=== PATIENT | female | born 1955 | race Caucasian/White ===

== ENCOUNTER → 2016-03-06 | Day surgery (SDC) | payer BC ==
[2016-02-25 07:51] VITALS: Ht 162.6 cm; Wt 75.0 kg
[~2016-03-06] VITALS: Ht 162.6 cm; Wt 75.0 kg
[~2016-03-06] MED LIST: AMLO-114 PO; ASPCH81X PO; ATOR10TA82 PO; FEXO1TAB49 PO; LEVO100T7 PO; LIDOCAINE HCL 2% 2 ML VIAL (20MG/ML) ONE; MIDAZOLAM HCL 1 MG/ML 2ML VIAL ONE; MULT-190 PO; PROPOFOL IV EMULSION 10 MG/ML 20 ML VIAL IV ONE; SODIUM CHLORIDE 0.9% 500ML 500 ML IV ONE
--- NOTE | 2016-03-06 12:54 | Endo History and Physical ---
History & Physical Date of Service: Mar 06, 2016. Chief Complaint: Nausea, Atypical chest pain Referring Physician: Dr Nguyen History of Present Illness 60 yo CF who presents for EGD secondary to nausea and atypical chest pain. Past Medical History Cancer, High Cholesterol, Hypertension, Thyroid Disease, Other Past Surgical History Hx Cardiac Surgery: No Hx Internal Defibrillator: No Hx Pacemaker: No Hx of Implantable Prosthesis: No Hx Post-Op Nausea and Vomiting: No Hx Cancer Surgery: No Hx Thoracic Surgery: No Hx Orthopedic: Yes (RT MENISCUS REPAIR) Hx Urinary Tract Surgery: No Family History None Social History Smoking Status: Never Smoker Hx Substance Use: No Hx Alcohol Use: Yes (OCCASIONAL) Allergies Coded Allergies: Doxycycline (Verified Allergy, Unknown, UNKNOWN, 03/06/16) Penicillins (Verified Allergy, Unknown, HIVES, SWELLING, 02/25/16) Current Medications Reported Home Medications Medications Dose Route/Sig Max Daily Dose Days Date Category Ocuvite Preservision (Multivitamins/Minerals) 1 Tab Tab 2 Tab PO QAM 02/25/16 Reported Levothyroxine Sodium 100 Mcg Tab 1 Tab PO QAM 90 02/25/16 Reported Lipitor (Atorvastatin Calcium) 10 Mg Tab 10 Mg PO QAM 02/25/16 Reported Carmina Allergy (Fexofenadine Hcl) 180 Mg Tab 1 Tab PO DAILY PRN 14 02/25/16 Reported Norvasc (Amlodipine Besylate) 10 Mg Tab 10 Mg PO QAM 07/27/13 Reported Aspirin Chewable (Aspirin) 81 Mg Chew 81 Mg PO QAM 02/22/12 Reported Vital Signs Weight (Kilograms): 75 Height (Feet): 5 Height (Inches): 4 Date Time Temp Pulse Resp B/P Pulse Ox O2 Delivery O2 Flow Rate FiO2 03/06/16 12:42 36.6 62 20 123/77 97 Room Air Physical Exam General Appearance: WD/WN, no apparent distress Respiratory/Chest: Auscultation: breath sounds normal Cardiovascular: Heart Auscultation: RRR Abdomen: Bowel Sounds: normal Inspection & Palpation: soft, non-distended, no tenderness, guarding & rebound Assessment and Plan Assessment: 60 yo CF who presents for EGD secondary to nausea and atypical chest pain. Plan: Proceed with EGD.
--- NOTE | 2016-03-06 13:08 | Discharge Instructions ---
Endoscopy Patient Instructions Date / Procedure(s) Performed Mar 06, 2016. EGD Allergy Information Coded Allergies: Doxycycline (Verified Allergy, Unknown, UNKNOWN, 03/06/16) Penicillins (Verified Allergy, Unknown, HIVES, SWELLING, 02/25/16) Discharge Date / Findings Mar 06, 2016. Erosive gastritis with biopsies Hiatal hernia Medication Instructions 1) OK to resume all medications today as prescribed 2) Start Protonix 40mg by mouth each morning 1/2 hour prior to breakfast. Reported Home Medications Medications Dose Route/Sig Max Daily Dose Days Date Category Ocuvite Preservision (Multivitamins/Minerals) 1 Tab Tab 2 Tab PO QAM 02/25/16 Reported Levothyroxine Sodium 100 Mcg Tab 1 Tab PO QAM 90 02/25/16 Reported Lipitor (Atorvastatin Calcium) 10 Mg Tab 10 Mg PO QAM 02/25/16 Reported Carmina Allergy (Fexofenadine Hcl) 180 Mg Tab 1 Tab PO DAILY PRN 14 02/25/16 Reported Norvasc (Amlodipine Besylate) 10 Mg Tab 10 Mg PO QAM 07/27/13 Reported Aspirin Chewable (Aspirin) 81 Mg Chew 81 Mg PO QAM 02/22/12 Reported Provider Instructions Activity Restrictions - No exercising or heavy lifting for 24 hours. - Do not drink alcohol the day of the procedure. - Do not drive a car or operate machinery until the day after the procedure. - Do not make any important decisions or sign important papers in 24 hours after the procedure. Following Day: - Return to full activity which may include returning to work/school. Diet Start your diet with liquids and light foods (jello, soup, juice, toast). Then eat your usual diet if not nauseated. Treatment For Common After Affects For mild abdominal pain, bloating, or excessive gas: - Rest - Eat lightly - Lie on right side Follow-Up Information Follow-up with Dr Nguyen as scheduled Anesthesia Information What You Should Know You have had a procedure that required some medicine to reduce anxiety and discomfort. This treatment is called moderate sedation. After receiving the treatment, you may be sleepy, but you will be able to breathe on your own. The effects of the treatment may last for several hours. Follow these instructions along with Activity/Diet recommendations noted above: * Do NOT do anything where dizziness or clumsiness would be dangerous. * Rest quietly at home today, then you can be up and about tomorrow. * Have a responsible person stay with you the rest of today. * You may have had an I.V. today. If so, you may take the dressing off later today. Recommendations Call your doctor if: * Trouble breathing * Continuous vomiting for more than 24 hours * Temperature above 101 degrees * Severe abdominal pain or bloating * Pain not relieved by pain medicine ordered * There is increased drainage or redness from any incision * A large amount of rectal bleeding greater than 2-3 tablespoons. (If you had a polyp/s removed or have hemorrhoids, a small amount of blood - from the rectum is to be expected.) * You have any unanswered questions or concerns. IN THE EVENT OF A SERIOUS EMERGENCY, GO TO THE NEAREST EMERGENCY ROOM Your discharge instructions were prepared by provider Santos Metz. Patient Instructions Signature Page Samantha Mendoza Patient (or Guardian) Signature/Date: I have read and understand the instructions given to me by my caregivers. Caregiver/RN/Doctor Signature/Date: The above-named patient and/or guardian has received patient instructions on this date. + Original Patient Signature Page (only) stays with chart. Please make copy for patient.
--- NOTE | 2016-03-06 13:16 | GI REPORT ---
Procedure Date: 03/06/2016 12:32 PM Procedure: Upper GI endoscopy Indications: Unexplained chest pain, Nausea Medicines: Monitored Anesthesia Care Complications: No immediate complications. Estimated Blood Loss: Estimated blood loss: none. Procedure: Pre-Anesthesia Assessment: - Prior to the procedure, a History and Physical was performed, and patient medications and allergies were reviewed. The patient's tolerance of previous anesthesia was also reviewed. The risks and benefits of the procedure and the sedation options and risks were discussed with the patient. All questions were answered, and informed consent was obtained. Prior Anticoagulants: The patient has taken aspirin, last dose was 3 days prior to procedure. ASA Grade Assessment: II - A patient with mild systemic disease. After reviewing the risks and benefits, the patient was deemed in satisfactory condition to undergo the procedure. After obtaining informed consent, the endoscope was passed under direct vision. Throughout the procedure, the patient's blood pressure, pulse, and oxygen saturations were monitored continuously. The scope was introduced through the mouth, and advanced to the second part of duodenum. The upper GI endoscopy was accomplished without difficulty. The patient tolerated the procedure well. Findings: The examined esophagus was normal. A small hiatus hernia was present. Localized moderate inflammation characterized by erosions was found in the gastric antrum. Biopsies were taken with a cold forceps for histology. The examined duodenum was normal. Impression: - Normal esophagus. - Small hiatus hernia. - Gastritis. Biopsied. - Normal examined duodenum. Recommendation: - Resume previous diet. - Continue present medications. - Await pathology results. - Use Protonix (pantoprazole) 40 mg PO daily indefinitely. - Return to GI office at appointment to be scheduled. Santos Metz DO 03/06/2016 1:15:22 PM This report has been signed electronically. Note Initiated On: 03/06/2016 12:32 PM
[2016-03-06 13:39] VITALS: BP 143/81; PULSE 62; O2SAT 97
--- NOTE | 2016-03-06 14:35 | Anesthesiology Progress Note ---
Anesthesia Post Op Note Date & Time Mar 06, 2016 at 14:34 Vital Signs Vital Signs Past 12 Hours Date Time Temp Pulse Resp B/P Pulse Ox O2 Delivery O2 Flow Rate FiO2 03/06/16 13:39 62 16 143/81 97 Room Air 03/06/16 13:24 64 16 136/87 97 Room Air 03/06/16 13:09 70 16 109/67 96 Room Air 03/06/16 12:42 36.6 62 20 123/77 97 Room Air Notes Mental Status: alert / awake / arousable Nausea / Vomiting: adequately controlled Pain: adequately controlled Airway Patency, RR, SpO2: stable & adequate BP & HR: stable & adequate Hydration State: stable & adequate Anesthetic Complications: no major complications apparent
== END | disposition home or self-care (01) ==
LOC: C.GI 12:09
PROVIDERS: ATTEND Internal Medicine
DX: R07.89 Other chest pain (principal); K29.70 Gastritis, unspecified, without bleeding; K44.9 Diaphragmatic hernia without obstruction or gangrene; Z88.0 Allergy status to penicillin; I10 Essential (primary) hypertension; M19.90 Unspecified osteoarthritis, unspecified site; Z68.28 Body mass index [BMI] 28.0-28.9, adult; Z98.51 Tubal ligation status

== ENCOUNTER → 2016-03-16 | Outpatient (CLI) | payer BC ==
[~2016-03-16] MED LIST changes: -ATOR10TA82 PO; +ATOR10TA88 PO; -LIDOCAINE HCL 2% 2 ML VIAL (20MG/ML) ONE; -MIDAZOLAM HCL 1 MG/ML 2ML VIAL ONE; -PROPOFOL IV EMULSION 10 MG/ML 20 ML VIAL IV ONE; -SODIUM CHLORIDE 0.9% 500ML 500 ML IV ONE
--- NOTE | 2016-03-16 12:58 | DIAGNOSTIC IMAGING REPORT ---
CHEST 2 VIEWS ROUTINE HISTORY: Wheezing. Cough. COMPARISON: Chest 02/22/2012. FINDINGS: Increased markings with right medial lung base. No pleural effusions. No pneumothorax. The heart is borderline enlarged. This remains unchanged. No evidence for pulmonary edema. The left lung is clear. IMPRESSION: Increased markings within the right medial lung base. This favors atelectasis. A small right lower lobe pneumonia could also have a similar appearance. One to 2 month chest x-ray follow-up is recommended to ensure resolution. Electronically signed by: Félix Acevedo M.D. 03/16/2016 12:56 PM Dictated Date/Time: 03/16/2016 12:53 PM
== END | disposition home or self-care (01) ==
LOC: C.RAD1850 11:47
PROVIDERS: ATTEND Internal Medicine Pulmonary Disease
DX: R06.2 Wheezing (principal)

== ENCOUNTER → 2016-04-12 | Outpatient (CLI) | payer BC ==
--- NOTE | 2016-04-12 08:48 | DIAGNOSTIC IMAGING REPORT ---
TWO VIEW CHEST CLINICAL HISTORY: Follow-up abnormal chest x-ray. FINDINGS: PA and lateral chest radiographs are compared to study dated 03/16/2016. The cardiomediastinal silhouette is unremarkable. There is a prominent epicardial fat pad seen at the left lung base as well as the medial right lung base. There is mild bibasilar atelectasis. The lungs and pleural spaces are otherwise clear. There is no pneumothorax. The skeletal structures are osteopenic. The bony thorax appears intact. IMPRESSION: No active disease in the chest. Electronically signed by: Aureliano Macias M.D. 04/12/2016 8:47 AM Dictated Date/Time: 04/12/2016 8:45 AM
== END | disposition home or self-care (01) ==
LOC: C.RAD1850 08:34
PROVIDERS: ATTEND Internal Medicine Pulmonary Disease
DX: R91.8 Other nonspecific abnormal finding of lung field (principal)

== ENCOUNTER → 2016-05-25 | Outpatient (CLI) | payer BC ==
--- NOTE | 2016-05-25 09:52 | DIAGNOSTIC IMAGING REPORT ---
Biliary ultrasound CLINICAL HISTORY: Hepatic cyst COMPARISON STUDY: 02/24/2016 FINDINGS: The pancreas appears normal as visualized. There is a 2 mm echogenic focus in the gallbladder. This did not rule or shadow and likely represents a tiny polyp. No gallstones were visualized. There is a 17 mm hepatic cyst unchanged from the prior study. There is no ductal dilatation. The common bile duct measures 5 mm. IMPRESSION: Stable 17 mm left lobe hepatic cyst, unchanged from the preceding study. Electronically signed by: Da Coffey M.D. 05/25/2016 9:50 AM Dictated Date/Time: 05/25/2016 9:32 AM
== END | disposition home or self-care (01) ==
LOC: C.ULTR 09:03
PROVIDERS: ATTEND Registered Nurse
DX: K76.89 Other specified diseases of liver (principal)

== ENCOUNTER → 2016-10-26 | Outpatient (CLI) | payer BC ==
--- NOTE | 2016-10-26 10:28 | DIAGNOSTIC IMAGING REPORT ---
L-SPINE MIN 4 VIEWS ROUTINE HISTORY: 61 years-old Female LOW BACK PAIN, STRAIN OF Muscle, fascia AND TENDON COMPARISON: Chest radiograph 04/12/2016 TECHNIQUE: 5 views of the lumbar spine FINDINGS: 5 nonrib-bearing lumbar type vertebral segments are present. No acute fracture or subluxation identified. Moderate intervertebral disc space narrowing noted at L5-S1. Mild multilevel facet arthrosis is seen. Mild endplate spurring is seen at several levels. Soft tissues are unremarkable. Probable phlebolith are seen within the pelvis. IMPRESSION: 1. No acute lumbar spine fracture or subluxation. 2. Moderate intervertebral disc space narrowing at L5-S1. The above report was generated using voice recognition software. It may contain grammatical, syntax or spelling errors. Electronically signed by: Graeme Hudson M.D. 10/26/2016 10:27 AM Dictated Date/Time: 10/26/2016 10:25 AM
== END | disposition home or self-care (01) ==
LOC: C.RADBC 09:52
PROVIDERS: ATTEND Nurse Practitioner
DX: M48.07 Spinal stenosis, lumbosacral region (principal); S39.012A Strain of muscle, fascia and tendon of lower back, initial encounter; X58.XXXA Exposure to other specified factors, initial encounter

== ENCOUNTER → 2016-10-27 | Outpatient (CLI) | payer BC ==
--- NOTE | 2016-10-30 13:48 | MAMMOGRAPHY REPORT ---
BILATERAL DIGITAL SCREENING MAMMOGRAM TOMOSYNTHESIS WITH CAD: 10/27/2016 CLINICAL HISTORY: Routine screening. Patient has no complaints. TECHNIQUE: Breast tomosynthesis in addition to standard 2D mammography was performed. Current study was also evaluated with a Computer Aided Detection (CAD) system. COMPARISON: Comparison is made to exams dated: 10/27/2015 mammogram, 10/20/2014 mammogram, 10/14/2013 m ammogram, 10/10/2012 mammogram, 10/06/2011 mammogram, and 10/04/2010 mammogram - [facility] er. BREAST COMPOSITION: The tissue of both breasts is heterogeneously dense, which may obscure small mas ses. FINDINGS: No suspicious masses, calcifications, or areas of architectural distortion are noted in ei ther breast. There has been no significant interval change compared to prior exams. There is stable architectural distortion in the right upper outer quadrant at the site of prior surgery. Bilateral b enign-appearing calcifications are not significantly changed. IMPRESSION: ACR BI-RADS CATEGORY 2: BENIGN There is no mammographic evidence of malignancy. A 1 year screening mammogram is recommended. The pa tient will receive written notification of the results. Approximately 10% of breast cancers are not detected with mammography. A negative mammographic report should not delay biopsy if a clinically suggestive mass is present. Lashon Salmeron M.D. /:10/27/2016 17:03:29 Importer Exporter: Talya DEAL(Neena)(Tammi)([place]), [facility] letter sent: Normal 1/2 BI-RADS Code: ACR BI-RADS Category 2: Benign
== END | disposition home or self-care (01) ==
LOC: C.MAMM 08:50
PROVIDERS: ATTEND Internal Medicine
DX: Z12.31 Encounter for screening mammogram for malignant neoplasm of breast (principal)

== ENCOUNTER → 2017-03-14 | Outpatient (CLI) | payer BC, OTHER ==
[~2017-03-14] MED LIST changes: +ATOR10TA82 PO; -ATOR10TA88 PO
--- NOTE | 2017-03-14 09:07 | DIAGNOSTIC IMAGING REPORT ---
LUMBAR SPINE MRI HISTORY: M54.5 Low back painM53.9 Sciatica of left side associated with d TECHNIQUE: Multiplanar multisequence MRI of the lumbar spine was performed without the use of contrast. COMPARISON: Lumbar spine 10/26/2016. FINDINGS: For the purpose of the report the L5-S1 disc space will be located on axial image 23 of 25. No fracture or subluxation within the lumbar spine. Mild dextroscoliosis of the thoracolumbar spine. The conus terminates at the L1 level. Paraspinal soft tissues are unremarkable. Mild disc space narrowing at L3-L4 and L4-L5, and L5-S1. L1-L2: No significant central canal or neural foraminal narrowing. L2-L3: No significant central canal or neural foraminal narrowing. L3-L4: Broad-based posterior disc protrusion resulting and moderate central canal narrowing. There is also mild left-sided neural foraminal narrowing. The AP diameter of the central canal is 5 mm. L4-L5: Broad-based posterior disc bulge with a broad-based posterior disc protrusion. In conjunction with the ligamentum and facet hypertrophy this results in severe central canal and mild bilateral neural foraminal narrowing. The AP diameter of the central canal is 4 mm. L5-S1: No significant central canal or neural foraminal narrowing. Tiny broad-based posterior disc bulge. IMPRESSION: 1. Moderate central canal narrowing at L3-L4 and severe central canal narrowing at L4-L5 as described above. 2. No fracture or subluxation within the lumbar spine. 3. Mild dextroscoliosis of the thoracolumbar spine. Electronically signed by: Félix Acevedo M.D. 03/14/2017 9:06 AM Dictated Date/Time: 03/14/2017 9:00 AM
== END | disposition home or self-care (01) ==
LOC: C.MRI 08:03
PROVIDERS: ATTEND Internal Medicine
DX: M54.5 Low back pain (principal); M53.9 Dorsopathy, unspecified; G47.9 Sleep disorder, unspecified; R26.9 Unspecified abnormalities of gait and mobility; R93.7 Abnormal findings on diagnostic imaging of other parts of musculoskeletal system; M48.061 Spinal stenosis, lumbar region without neurogenic claudication

== ENCOUNTER → 2017-05-16 | Outpatient (CLI) | payer OTHER ==
[~2017-05-16] MED LIST changes: -ASPCH81X PO; +CHOL100010; -LEVO100T7 PO; +LEVO112T4 PO
--- NOTE | 2017-05-16 09:05 | DIAGNOSTIC IMAGING REPORT ---
(LIVER) ABDOMEN LIMITED CLINICAL HISTORY: K76.89 Hepatic [id number] liver cyst TECHNIQUE: Ultrasound COMPARISON STUDY: 02/24/2016. 05/24/2016 FINDINGS: Unchanged 1.6 cm hepatic cyst. Mild fatty replacement of liver. Normal biliary ductal system. Very small gallbladder polyp unchanged. Right kidney is negative for hydronephrosis. Common bile duct 4 mm. Pancreas is suboptimally seen but grossly unremarkable. IMPRESSION: Small stable benign hepatic cyst. Small gallbladder polyp. Mild fatty replacement of the liver. The above report was generated using voice recognition software. It may contain grammatical, syntax or spelling errors. Electronically signed by: Manny Song M.D. 05/16/2017 9:03 AM Dictated Date/Time: 05/16/2017 9:01 AM
== END | disposition home or self-care (01) ==
LOC: C.ULTR 08:09
PROVIDERS: ATTEND Registered Nurse
DX: K76.89 Other specified diseases of liver (principal)